=== PATIENT | male | born 1970 | race African-American/Black ===

== ENCOUNTER 2021-01-25 11:15 | Emergency (ER) | payer OTHER ==
[2021-01-25 11:26] VITALS: BP 103/64; PULSE 64; TEMP 97.3; BMI 22.3
[2021-01-25] MEDS ORDERED: KETOROLAC TROMETHAMINE 30 MG/1 ML VIAL IM ONE (12:00)
[2021-01-25] MEDS ORDERED: KETOROLAC TROMETHAMINE 30 MG/1 ML VIAL ONE (12:08)
== END 2021-01-25 14:04 | disposition home or self-care (01) ==
LOC: JERFT 11:15
PROC: 3E023GC Introduction of Other Therapeutic Substance into Muscle, Percutaneous Approach (ICD-10-PCS; principal; 2021-01-25)
DX: M25.552 Pain in left hip (principal)
CPT/HCPCS: 73523-TC-FY; 99284-25

== ENCOUNTER 2021-11-22 06:54 | Emergency (ER) | payer OTHER ==
[2021-11-22 07:31] VITALS: BP 108/72; PULSE 65; TEMP 98.2; BMI 22.3
[2021-11-22] MEDS ORDERED: SODIUM CHLORIDE 1,000 ML IV STA (08:43)
[2021-11-22] MEDS ORDERED: ACETAMINOPHEN 1000 MG/100 ML BAG IVPB ONE (08:44)
[2021-11-22] MEDS ORDERED: ACETAMINOPHEN INJECTION 100 ML IVPB ONE (08:55)
[2021-11-22 09:32] LABS: HEMOGLOBIN 14.5 GM/dL (11.7-16.9); MCHC 32.8 g/dl (32.0-35.9); MEAN CELL VOLUME 85.2 fl (80-96); MEAN PLT VOLUME 7.7 fl (7.5-11.1); PLATELET COUNT 247 10^3/uL (134-434); RBC 5.17 M/mm3 (4.00-5.60); RDW 14.1 % (11.9-15.9); WHITE BLOOD COUNT 7.3 K/mm3 (4.0-10.0)
[2021-11-22 09:56] LABS: ALBUMIN 4.4 g/dl (3.4-5.0); CALCIUM 9.2 mg/dL (8.5-10.1)
[2021-11-22 09:57] LABS: BLOOD UREA NITROGEN 13.6 mg/dL (7-18)
[2021-11-22 10:01] LABS: BILIRUBIN,TOTAL 0.6 mg/dL (0.2-1); TOT PROT 7.4 g/dl (6.4-8.2)
== END 2021-11-22 12:45 | disposition home or self-care (01) ==
LOC: JERFT 06:54
PROC: 3E0333Z Introduction of Anti-inflammatory into Peripheral Vein, Percutaneous Approach (ICD-10-PCS; principal; 2021-11-22)
PROC: 3E0337Z Introduction of Electrolytic and Water Balance Substance into Peripheral Vein, Percutaneous Approach (ICD-10-PCS; 2021-11-22)
DX: A09 Infectious gastroenteritis and colitis, unspecified (principal); K85.80 Other acute pancreatitis without necrosis or infection
CPT/HCPCS: 36415; 74176-TC; 76705-TC; 80053; 83690; 84478; 85027; 93005; 93010; 99285-25

== ENCOUNTER 2021-12-17 06:39 | Emergency (ER) | payer OTHER ==
[2021-12-17 07:09] VITALS: BP 99/51; PULSE 51; RESP 18; TEMP 98.1; BMI 19.9
[2021-12-17] MEDS ORDERED: DIPHTH,PERTUSS(ACELL),TET 0.5 ML DISP.SYRIN IM ONE ×2 (08:10→08:18)
[2021-12-17] MEDS ORDERED: LIDOCAINE VISCOUS 2% ORAL/TOP 15 ML UNIT-DOSE CUP MM ONE (08:14)
[2021-12-17] MEDS ORDERED: LIDOCAINE HCL 1%, 10 MG/ML (50 mL VIAL) SQ ONE (08:14)
[2021-12-17] MEDS ORDERED: LIDOCAINE HCL 1%, 10 MG/ML (20ML VIAL) ONE (08:15)
[2021-12-17] MEDS ORDERED: LIDOCAINE VISCOUS 2% ORAL/TOP 15 ML UNIT-DOSE CUP ONE (08:15)
== END 2021-12-17 12:50 | disposition home or self-care (01) ==
LOC: JER 06:39 → JERFT 06:39
PROC: 0CQ03ZZ Repair Upper Lip, Percutaneous Approach (ICD-10-PCS; principal; 2021-12-17)
PROC: 3E0234Z Introduction of Serum, Toxoid and Vaccine into Muscle, Percutaneous Approach (ICD-10-PCS; 2021-12-17)
DX: S01.511A Laceration without foreign body of lip, initial encounter (principal)
CPT/HCPCS: 12013; 90471; 99284-25

== ENCOUNTER 2022-01-02 14:45 | Emergency (ER) | payer OTHER ==
[2022-01-02 14:58] VITALS: BP 104/64; PULSE 68; RESP 18; TEMP 98.1; BMI 19.9
== END 2022-01-02 16:04 | disposition home or self-care (01) ==
LOC: JERFT 14:45 → JER 14:45 → JERFT 16:04
DX: Z48.02 Encounter for removal of sutures (principal)
CPT/HCPCS: 99281-25

== ENCOUNTER 2024-01-28 17:00 | Emergency (ER) | payer OTHER ==
[2024-01-28 17:05] VITALS: BP 102/62; PULSE 77; RESP 18; TEMP 98; BMI 20.5
[2024-01-28] MEDS ORDERED: CEPHALEXIN MONOHYDRATE 500 MG CAPSULE (UD) ONE (20:38)
[2024-01-28] MEDS: CEPHALEXIN MONOHYDRATE 500 MG CAPSULE (UD) PO ONE (20:38)
== END 2024-01-28 20:40 | disposition home or self-care (01) ==
LOC: JERFT 17:00
DX: L08.9 Local infection of the skin and subcutaneous tissue, unspecified (principal)
CPT/HCPCS: 73130-TC-RT-FY; 87070; 87205; 99283-25